=== PATIENT | male | born 1965 | race Caucasian/White ===

== ENCOUNTER → 2017-02-25 | Outpatient (CLI) | payer OTHER ==
[~2017-02-25] MED LIST: FLUT0.0529 INH; LISI-461 PO; NAPR1TAB9 PO; TAMS0.4C38 PO; TRAM-10 PO; URC10 PO
[2017-02-25 11:34] LABS: URINE APPEARANCE TURBID (CLEAR); URINE BILIRUBIN NEG (NEG); URINE COLOR YELLOW; URINE EPITHELIAL CELL AUTO 0-5 /lpf (0-5); URINE NITRITE NEG (NEG); URINE PH 5.5 (4.5-7.5); URINE SPECIFIC GRAVITY 1.028 (1.000-1.030); UROBILINOGEN NEG (NEG)
[2017-02-25 11:43] LABS: MANUAL MICROSCOPIC REQUIRED? NO; REVIEW REQ? NO
[2017-02-25 12:02] LABS: ALT/SGPT 27 U/L (12-78); AST/SGOT 9 U/L (15-37); BLOOD UREA NITROGEN 17 mg/dl (7-18); BUN/CREATININE RATIO 15.5 (10-20); CALCIUM 8.5 mg/dl (8.5-10.1); CARBON DIOXIDE 26 mmol/L (21-32); CHLORIDE 109 mmol/L (98-107); GLUCOSE 86 mg/dl (70-99); POTASSIUM 3.8 mmol/L (3.5-5.1); SODIUM 142 mmol/L (136-145)
[2017-02-25 12:07] LABS: ALB/GLOB RATIO 1.3 (0.9-2); ALKALINE PHOSPHATASE 73 U/L (45-117); CHOLESTEROL 143 mg/dl (0-200); CHOLESTEROL/HDL RATIO 3.9; HDL CHOLESTEROL 37 mg/dl; LDL CHOLESTEROL CALCULATED 87 mg/dl; PROSTATE SPECIFIC ANTIGEN 0.475 ng/ml (0.000-4.000); TRIGLYCERIDES 93 mg/dl (0-150); VERY LOW DENSITY LIPOPROT CALC 19 mg/dl
== END | disposition home or self-care (01) ==
LOC: C.LABBC 07:59
PROVIDERS: ATTEND Internal Medicine
DX: Z00.00 Encounter for general adult medical examination without abnormal findings (principal); Z13.220 Encounter for screening for lipoid disorders; I10 Essential (primary) hypertension

== ENCOUNTER 2023-10-28 14:22 | Inpatient (IN) ==
--- NOTE | 2023-10-28 14:43 | Emergency Department Note ---
Impression & Plan Renal colic, Hydronephrosis, Acute flank pain ED Provider Note NAME: VINCENT MCKEON AGE: 58 SEX: M : 1965 ARRIVES VIA: Walk-In INFORMANT: Patient ED PROVIDER(S): Román Rehman DO CHIEF COMPLAINT: Left flank pain HPI: Patient is a 58-year-old male who presents to the ER for left flank pain which started around 12:00 today. Patient admits to nausea but no vomiting. Denies any headache or change in vision. No chest pain or shortness of breath. No dysuria, urgency or frequency. Pain is radiating to his left abdomen and in his left testicle. He admits that he has had previous kidney stones before and this feels very similar. No fevers. ADDITIONAL HISTORY OBTAINED: Additional history obtained from who notes that he has had stents placed previously. Chronic Medical/Social Conditions Affecting Care: Per HPI PAST MEDICAL HISTORY:See Below PAST SURGICAL HISTORY:See Below FAMILY HISTORY:See Below SOCIAL HISTORY:See Below HOME MEDICATIONS:See Below ALLERGIES:See Below VITALS:See Below PHYSICAL EXAMINATION: GENERAL: Sitting up in bed, alert, moderate distress holding left flank rocking back and forth on the floor of the room EYE EXAM: normal conjunctiva. PERRL and EOM's grossly intact. OROPHARYNX: mucous membranes are moist NECK: supple, no nuchal rigidity, no adenopathy, non-tender LUNGS: Clear to auscultation. Normal chest wall mechanics HEART: no murmurs, S1 normal and S2 normal ABDOMEN: abdomen soft, non-tender, normo-active bowel sounds, no masses, no rebound or guarding. BACK: Back is symmetrical on inspection and there is no deformity, or left flank pain on UPPER EXTREMITIES: upper extremities are grossly normal. LOWER EXTREMITIES: No pitting edema. NEURO EXAM: Normal sensorium, cranial nerves II-XII grossly intact, normal speech, no gross weakness of arms, no gross weakness of legs. MEDICAL DECISION MAKING: Patient is a 58-year-old male who presents the ER with a past medical history of renal colic with above-stated complaint. IV was established blood work was obtained. Labs show no significant leukocytosis or anemia. BMP along LFTs bilirubin and lipase is unremarkable. UA was negative. CT abdomen pelvis shows a proximal 4 mm stone. He was given IV fluids, Zofran, Toradol and morphine x 2. He was still having persistent pain. He was slightly hypoxic and placed on nasal cannula secondary to the narcotics. He was initially discharged prior to the result of the third dose of medication/morphine. When his pain reoccurred I discussed the case with the hospitalist for further evaluation management treatment due to the recurrence of his pain and multiple doses of narcotics and hypoxia now from multiple dose of narcotic. [facility] the [facility]ults/Care Managements Discussions: Per [facility] Triage Nursing notes reviewed. Limited review of prior medical records performed Vital Signs: reviewed and remarkable for htn Differential diagnosis: Differential diagnoses includes but is not limited to gastritis, peptic ulcer disease, GERD, gallbladder disease, pancreatitis, small bowel obstruction, appendicitis, diverticulitis, hernia, urinary tract infection, torsion, perforation, trauma, infectious. ER treatment provided: See below Diagnostics interpreted by me include EKG and cardiac monitoring as listed below: -Cardiac Monitoring: An order was placed for continuous cardiac monitoring. The monitor shows a rate of 70 with sinus rhythm. -ECG: none -Laboratory studies:Interpreted by me as stated above in MDM and shown below. Imaging studies: Xrays: As interpreted by me:none CTs show: CT abdomen pelvis per my preliminary interpretation showed no obvious bowel obstruction CT abdomen pelvis per radiology as described above Procedures:none Critical Care: None Past Med/Surg History Medical History Myofascial pain Paraspinal muscle spasm Acute thoracic back pain Ear pain, right TMJ arthralgia Head ache H/O renal calculi Abdominal pain Surgical History History of prior ablation treatment History of kidney surgery History of hernia repair History of colonoscopy History of appendectomy History of tonsillectomy and adenoidectomy History of lithotripsy H/O left inguinal hernia repair Family History Father Alcohol abuse Heart disease Parkinson disease Grandmother Heart disease Grandfather (Maternal) Heart disease Myocardial infarction Diabetes Mother Hypertension Brother Diabetes Denies family history of Ovarian cancer Prostate cancer Breast cancer Colorectal cancer Social History Smoking Status: Never smoker Second Hand Exposure: No; Do You Dip or Chew Tobacco: No; Hx Alcohol Use: Yes Alcohol type: beer and wine Alcohol Intake Frequency Comment: once a week Hx Substance Use: No Preferred Language: Romanian Communication Ability: Effective Visual Impairment: Limited Hearing Ability: Normal Solderer Dipper Required: No marital status: Current Living Situation: Spouse current occupational status: employed current occupation: [employer] How many Children do You have: 1 Feels Safe at Home: Yes Childhood Exposure to Second-Hand Smoke: Yes (father smoked pipe once a month in home) Diet: regular Diet Comment: regular caffeine: Yes (coffee ) during the past year weight has: remained stable Dental Care, Regularly: Yes Physical Activity Frequency: 3-4 Times per Week Seatbelt Use: always Sunscreen Use: Yes Allergies Allergies Allergy/AdvReac Type Severity Reaction Status Date / Time pollen extracts Allergy Intermediate ITCHY Verified 10/28/23 18:34 EYES, SNEEZING, CONGESTION capsaicin AdvReac Severe severe Verified 10/28/23 18:32 stomach pain diclofenac AdvReac Severe severe Verified 10/28/23 18:32 stomach pain Home Meds Home Medications Medication Instructions Recorded Confirmed fluticasone propionate 50 1 sprays intranasal DAILY PRN 02/17/20 10/28/23 mcg/actuation nasal CONGESTION/SPRING ALLERGIES spray,suspension Previous Rx's Medication Instructions Recorded cyclobenzaprine 5 mg tablet 5 mg PO TID PRN muscle spasm #45 08/14/23 tabs ondansetron 4 mg disintegrating 4 mg PO Q6H PRN nausea and 09/10/23 tablet vomiting #15 tabs Results & Data (ED) Vital Signs Vital Signs - 24 hr 10/28/23 14:25 10/28/23 14:44 10/28/23 15:08 Temperature 36.5 C Temperature Source Temporal Artery Scan Pulse Rate 71 56 L Pulse Rate [Apical] 63 Respiratory Rate 20 18 Respiratory Effort / Characteristics Non-Labored Spontaneous Non-Labored Spontaneous Respiratory Depth Normal Normal Respiratory Pattern Regular Blood Pressure 182/134 H Blood Pressure [Left Arm] 165/90 H Blood Pressure Mean 150 Blood Pressure Mean [Left Arm] 115 Blood Pressure Position [Left Arm] Sitting Pulse Oximetry 97 Oxygen Delivery Method Room Air Sepsis Recent Fever Within 48 Hours No Sepsis New/Unexplained Change in Mental Status No Sepsis Action Taken by Nursing No Action Required Laboratory Data 10/28/23 14:48 10/28/23 14:48 Lab Results 10/28/23 10/28/23 Range/Units 14:48 16:11 WBC 8.29 (4.8-10.8) K/ul RBC 5.24 (4.70-6.10) M/uL Hgb 15.6 (14.0-18.0) g/dl Hct 45.7 (42.0-52.0) % MCV 87.2 (80.0-100.0) fL MCH 29.8 (25.0-34.0) pg MCHC 34.1 (32.0-36.0) g/dL RDW Std Deviation 41.8 (36.4-46.3) fL RDW Coeff of Kisha 13.1 (11.5-14.5) % Plt Count 281 (130-400) K/uL MPV 10.4 (9.4-12.4) fL Immature Gran % (Auto) 0.5 % Neut % (Auto) 69.9 % Lymph % (Auto) 19.7 % Traill % (Auto) 7.0 % Eos % (Auto) 2.1 % Baso % (Auto) 0.8 % Neut # (Auto) 5.80 (1.40-6.50) K/uL Lymph # (Auto) 1.63 (1.20-3.40) K/uL Traill # (Auto) 0.58 (0.11-0.59) K/uL Eos # (Auto) 0.17 (0.00-0.50) K/uL Baso # (Auto) 0.07 (0.00-0.20) K/uL Immature Gran # (Auto) 0.04 (0.01-0.20) K/uL Sodium 137 (136-145) mmol/L Potassium 4.1 (3.5-5.1) mmol/L Chloride 106 (98-107) mmol/L Carbon Dioxide 22 (21-32) mmol/L Anion Gap 9 (3-11) BUN 22 (6-23) mg/dl Creatinine 1.33 (0.6-1.4) mg/dl Est Cr Clr Drug Dosing Not Reportable Est GFR ( Amer) 67.3 ml/min Est GFR (Non-Af Amer) 58.1 ml/min BUN/Creatinine Ratio 16.5 (10-20) Glucose 141 H (70-99(Fasting)) mg/dl Calcium 9.6 (8.6-10.3) mg/dl Total Bilirubin 0.6 (0.2-1.0) mg/dl AST 17 (13-39) U/L ALT 36 (7-52) U/L Alkaline Phosphatase 68 (34-104) U/L Total Protein 7.0 (6.0-8.3) gm/dl Albumin 4.5 (3.4-5.0) gm/dl Globulin 2.5 (2.5-4.0) gm/dl Albumin/Globulin Ratio 1.8 (0.9-2) Lipase 35 (11-82) U/L Urine Color Yellow Urine Appearance Clear (Clear) Urine pH 6.5 (4.5-7.5) Ur Specific [place] 1.025 (1.000-1.030) Urine Protein Negative (Negative) Urine Glucose (UA) Negative (Negative) Urine Ketones Trace H (Negative) Urine Blood Negative (Negative) Urine Nitrite Negative (Negative) Urine Bilirubin Negative (Negative) Urine Urobilinogen Negative (Negative) Ur Leukocyte Esterase Negative (Negative) Administered Medications Discontinued Medications Sodium Chloride (Nss) 1,000 mls @ 999 mls/hr IV .Q1H1M ONE Stop: 10/28/23 17:00 Last Infusion: 10/28/23 18:07 Dose: Infused Documented By: Admin: 10/28/23 16:11 Dose: 999 mls/hr Documented By: STEFFI Ketorolac Tromethamine (Ketorolac Tromethamine 15 Mg/Ml Vial) 10 mg IV NOW ONE Stop: 10/28/23 14:40 Last Admin: 10/28/23 14:51 Dose: 10 mg Documented By: JAMIE Morphine Sulfate (Morphine Sulfate 10 Mg/Ml Carp/Vial) 6 mg IV NOW STA Stop: 10/28/23 14:40 Last Admin: 10/28/23 14:51 Dose: 6 mg Documented By: JAMIE Morphine Sulfate (Morphine Sulfate 4 Mg/Ml 1 Ml Carp\Vial) 4 mg IV NOW STA Stop: 10/28/23 17:33 Last Admin: 10/28/23 17:34 Dose: 4 mg Documented By: STEFFI Ondansetron HCl (Ondansetron Inj 2 Mg/Ml 2 Ml Vial) 4 mg IV NOW STA Stop: 10/28/23 14:40 Last Admin: 10/28/23 14:52 Dose: 4 mg Documented By: JAMIE Imaging Data Radiologist's Impression: Abdomen/Pelvis CT 10/28/23 14:[address] WITHOUT CONTRAST CT DOSE: 1279.21 mGy.cm HISTORY: Generalized abdominal pain. TECHNIQUE: Multiaxial CT images of the abdomen and pelvis were performed without contrast. A dose lowering technique was utilized adhering to the principles of ALARA. COMPARISON STUDY: Abdomen and pelvis CT 04/18/2015. FINDINGS: There is a punctate calcified granuloma within the left lower lobe. Mild dependent changes seen at the lung bases. No pneumoperitoneum. No pneumatosis. No acute fractures identified. Tiny fat-containing umbilical hernia. Prior left inguinal hernia repair. A few punctate calcified granuloma seen within the liver and spleen. The gallbladder, pancreas, and adrenal glands are unremarkable. Mild left perinephric edema. Bilateral peripelvic cysts are noted. There are few punctate bilateral renal calculi most pronounced on the right. There is a 4 mm obstructing stone within the left ureteropelvic junction resulting in moderate left hydronephrosis. No right-sided hydronephrosis. Normal caliber abdominal aorta. No retroperitoneal or pelvic lymphadenopathy. No pelvic free fluid. Normal bladder. Suboptimal evaluation for bowel pathology due to the lack of intravenous and oral contrast. However, there is no definite bowel wall thickening or obstruction. Colonic diverticulosis. No evidence for acute diverticulitis. Prior appendectomy. IMPRESSION: 1. A 4 mm obstructing stone within the left ureteropelvic junction resulting in moderate left hydronephrosis. 2. Bilateral nephrolithiasis. 3. No bowel wall thickening or obstruction. 4. Colonic diverticulosis. No evidence for acute diverticulitis. ACT 112: Negative or not required by law. Electronically signed by: Sharad Lemus M.D. 10/28/2023 4:12 PM Discharge Plan Visit Data Chief Complaint: Flank Pain Stated Complaint: KIDNEY STONE ED Provider: Román Rehman Discharge Problem: Renal colic, Hydronephrosis, Acute flank pain Discharge Instructions Krames/Other Patient Handouts: ED Kidney Stone with Pain Activity Restrictions/Additional Instructions: Please follow up with your primary care doctor or if you are a student, [facility] with in the next 24 hours. You were found to have a kidney stone. This is a stone that was made in your kidneys and is currently in your ureter. Once it gets into your bladder you will no longer have any pain and will eventually urinate this out. Any worsening of your symptoms, please return to the ED immediately. This includes any fevers greater than 100.4, worsening pain, chest pain, shortness breath, persistent nausea, vomiting, unable to eat or drink, or any other concerning signs or symptoms from your standpoint. You were given medications during this visit that will inhibit your ability to drive, operate machinery and work. Please do NOT drive, operate machinery or work for the next 12hrs. You were also given a prescription for a narcotic. While taking this medication you should also not drive, operate machinery and or work. You were found to have a blood pressure greater than 120 systolic over 90 diastolic. Due to the new Medicare guidelines, we are now recommending that you follow up with your primary care doctor in regards to this elevated blood pressure. Please follow up with urology and call them first thing when you leave here between the hours of 8am and 5pm to schedule an appointment. Please inform them that you were seen and evaluated in the ER and need follow-up for your kidney stone. Forms Stand Alone Forms: My [facility] Prescriptions Prescriptions: No Action cyclobenzaprine 5 mg tablet 5 mg PO TID PRN (Reason: muscle spasm) Qty: 45 0RF fluticasone propionate 50 mcg/actuation spray,suspension 1 sprays INTNAS DAILY PRN (Reason: CONGESTION/SPRING ALLERGIES) ondansetron 4 mg tablet,disintegrating 4 mg PO Q6H PRN (Reason: nausea and vomiting) Qty: 15 0RF Referrals Referrals: Stevie Braun CRNP [Primary Care Provider] - Marino Deluca MD [Physician] - Discharge Problem: Hydronephrosis Qualifiers: Hydronephrosis type: unspecified Qualified Code(s): N13.30 - Unspecified hydronephrosis
[2023-10-28] MEDS: MoRPHine SULFATE 10 MG/ML CARP/VIAL IV STA (14:51)
[2023-10-28] MEDS: KETOROLAC TROMETHAMINE 15 MG/ML VIAL IV ONE (14:51)
[2023-10-28] MEDS: ONDANSETRON INJ 2 MG/ML 2 ML VIAL IV STA (14:52)
[2023-10-28 15:08] LABS: Basophils # (auto) 0.07 K/uL (0.00-0.20); Basophils % (auto) 0.8 %; Eosinophils # (auto) 0.17 K/uL (0.00-0.50); Eosinophils % (auto) 2.1 %; Hematocrit (blood only) 45.7 % (42.0-52.0); Hemoglobin 15.6 g/dl (14.0-18.0); Immature Granulocytes # (auto) 0.04 K/uL (0.01-0.20); Immature Granulocytes % (auto) 0.5 %; Lymphocytes # (auto) 1.63 K/uL (1.20-3.40); Lymphocytes % (auto) 19.7 %; Mean Corpuscular Hemoglobin 29.8 pg (25.0-34.0); Mean Corpuscular Hgb Conc 34.1 g/dL (32.0-36.0); Mean Corpuscular Volume 87.2 fL (80.0-100.0); Mean Platelet Volume 10.4 fL (9.4-12.4); Monocytes # (auto) 0.58 K/uL (0.11-0.59); Neutrophils % (auto) 69.9 %; Platelet Count 281 K/uL (130-400); RDW Coefficient of Variation 13.1 % (11.5-14.5); RDW Standard Deviation 41.8 fL (36.4-46.3); Red Blood Count 5.24 M/uL (4.70-6.10); White Blood Count 8.29 K/ul (4.8-10.8)
[2023-10-28 15:32] LABS: Albumin Level 4.5 gm/dl (3.4-5.0); Anion Gap 9 (3-11); Bilirubin,Total 0.6 mg/dl (0.2-1.0); Calcium 9.6 mg/dl (8.6-10.3); Carbon Dioxide 22 mmol/L (21-32); Chloride 106 mmol/L (98-107); Potassium 4.1 mmol/L (3.5-5.1); Sodium 137 mmol/L (136-145)
[2023-10-28 15:38] LABS: Alanine Aminotransferase 36 U/L (7-52); Albumin Globulin Ratio 1.8 (0.9-2); Alkaline Phosphatase 68 U/L (34-104); Aspartate Aminotransferase 17 U/L (13-39); BUN Creatinine Ratio 16.5 (10-20); Blood Urea Nitrogen 22 mg/dl (6-23); Est GFR (African American) 67.3 ml/min; Est GFR (Non-African American) 58.1 ml/min; Globulin 2.5 gm/dl (2.5-4.0); Glucose 141 mg/dl (70-99(Fasting)); Lipase 35 U/L (11-82)
[2023-10-28] MEDS: SODIUM CHLORIDE 0.9% 1,000 ML IV ONE ×2 (16:11→19:24)
--- NOTE | 2023-10-28 16:14 | CT Scan Report ---
ABDOMEN AND PELVIS CT WITHOUT CONTRAST CT DOSE: 1279.21 mGy.cm HISTORY: Generalized abdominal pain. TECHNIQUE: Multiaxial CT images of the abdomen and pelvis were performed without contrast. A dose lo wering technique was utilized adhering to the principles of ALARA. COMPARISON STUDY: Abdomen and pelvis CT 04/18/2015. FINDINGS: There is a punctate calcified granuloma within the left lower lobe. Mild dependent changes seen at the lung bases. No pneumoperitoneum. No pneumatosis. No acute fractures identified. Tiny fat- containing umbilical hernia. Prior left inguinal hernia repair. A few punctate calcified granuloma se en within the liver and spleen. The gallbladder, pancreas, and adrenal glands are unremarkable. Mild left perinephric edema. Bilateral peripelvic cysts are noted. There are few punctate bilateral renal calculi most pronounced on the right. There is a 4 mm obstructing stone within the left ureteropelvic junction resulting in moderate left hydronephrosis. No right-sided hydronephrosis. Normal caliber ab dominal aorta. No retroperitoneal or pelvic lymphadenopathy. No pelvic free fluid. Normal bladder. Paulson boptimal evaluation for bowel pathology due to the lack of intravenous and oral contrast. However, th ere is no definite bowel wall thickening or obstruction. Colonic diverticulosis. No evidence for acut e diverticulitis. Prior appendectomy. IMPRESSION: 1. A 4 mm obstructing stone within the left ureteropelvic junction resulting in moderate left hydrone phrosis. 2. Bilateral nephrolithiasis. 3. No bowel wall thickening or obstruction. 4. Colonic diverticulosis. No evidence for acute diverticulitis. ACT 112: Negative or not required by law. Electronically signed by: Sharad Lemus M.D. 10/28/2023 4:12 PM
[2023-10-28 16:34] LABS: Appearance Urine Clear (Clear); Bilirubin Urine Negative (Negative); Blood Urine Negative (Negative); Color Urine Yellow; Glucose Urine UA Negative (Negative); Ketones Urine Trace (Negative); Leukocyte Esterase Urine Negative (Negative); Nitrite Urine Negative (Negative); Protein Urine Negative (Negative); Specific Gravity Urine 1.025 (1.000-1.030); Urobilinogen Urine Negative (Negative); pH Urine 6.5 (4.5-7.5)
[2023-10-28] MEDS: MoRPHine SULFATE 4 MG/ML 1 ML CARP\\VIAL IV STA (17:34)
--- NOTE | 2023-10-28 18:50 | History & Physical Report ---
Date of Service October 28, 2023 Assessment & Plan (1) Ureterolithiasis: Plan: IV fluids Acetaminophen 1st line, morphine 2nd line for pain NPO after midnight Consult urology (2) Hydronephrosis: (3) Renal colic: Plan VTE prophylaxis - low risk Diet - clear liquids, n.p.o. after midnight Disposition - admit to med/surg Admission and Anticipated Discharge Date Admission Date: October 28, 2023 History of Present Illness Chief Complaint: Left flank pain Primary Care Provider: FENRANDO Newby Maurciio Trevino is a 58-year-old male who presents to the ER with left flank pain. Started acutely at midday today. Radiates to groin. No exacerbating factors. No dysuria, change in frequency or smell. No fever or chills. Allergies Allergy/AdvReac Type Severity Reaction Status Date / Time pollen extracts Allergy Intermediate ITCHY Verified 10/28/23 18:34 EYES, SNEEZING, CONGESTION capsaicin AdvReac Severe severe Verified 10/28/23 18:32 stomach pain diclofenac AdvReac Severe severe Verified 10/28/23 18:32 stomach pain Home Medications Medication Instructions Recorded Confirmed Type fluticasone propionate 50 1 sprays intranasal DAILY PRN 02/17/20 10/28/23 History mcg/actuation nasal CONGESTION/SPRING ALLERGIES spray,suspension cyclobenzaprine 5 mg tablet 5 mg PO TID PRN muscle spasm #45 08/14/23 10/28/23 Rx tabs ondansetron 4 mg disintegrating 4 mg PO Q6H PRN nausea and 09/10/23 10/28/23 Rx tablet vomiting #15 tabs Past Med/Surg History Medical History Myofascial pain Paraspinal muscle spasm Acute thoracic back pain Ear pain, right TMJ arthralgia Head ache H/O renal calculi Abdominal pain Surgical History History of prior ablation treatment 2016 [facility] History of kidney surgery History of hernia repair History of colonoscopy 2016 History of appendectomy History of tonsillectomy and adenoidectomy History of lithotripsy H/O left inguinal hernia repair Family History Father Alcohol abuse Heart disease Parkinson disease Grandmother Heart disease Grandfather (Maternal) Heart disease Myocardial infarction Diabetes Mother Hypertension Brother Diabetes Denies family history of Ovarian cancer Prostate cancer Breast cancer Colorectal cancer Social History Smoking Status: Never smoker Second Hand Exposure: No; Do You Dip or Chew Tobacco: No; Hx Alcohol Use: Yes Alcohol type: beer and wine Alcohol Intake Frequency Comment: once a week Hx Substance Use: No Preferred Language: Greek Communication Ability: Effective Visual Impairment: Limited Hearing Ability: Normal Fruit Sprayer Required: No Beliefs That Will Affect Care: None marital status: Current Living Situation: Spouse Current Living Situation Comment: lives in 2 story house with current occupational status: employed current occupation: [employer] ([email or web address]) How many Children do You have: 1 Other Information That Helps Us Care for You: No Feels Safe at Home: Yes Safety Concerns: Feels Safe At This Time Childhood Exposure to Second-Hand Smoke: Yes (father smoked pipe once a month in home) Diet: regular Diet Comment: regular caffeine: Yes (coffee ) during the past year weight has: remained stable Dental Care, Regularly: Yes Physical Activity Frequency: 3-4 Times per Week Seatbelt Use: always Sunscreen Use: Yes Assistive Devices: Glasses and Hearing Aid - Bilateral Review of Systems Review of Systems: All systems reviewed & are unremarkable except as noted in HPI & below Physical Exam Constitutional: WD/WN, vitals as above ENMT: external ear and nose normal, oropharynx normal Respiratory: normal respiratory effort, lungs clear to auscultation Cardiovascular: RRR, no murmur, no edema Gastrointestinal (Abdomen): normal bowel sounds, soft, nontender, no hepatosplenomegaly Skin: no rashes, warm and dry Neurologic: moves all extremities and awake; not confused Psychiatric: A+Ox3, euthymic affect Genitourinary: no CVA tenderness Results & Data Results & Data Vital Signs (Past 12 Hours) Vital Signs Temp Pulse Pulse Resp BP BP Pulse Ox 10/28/23 15:08 56 L 10/28/23 14:44 63 18 165/90 H 10/28/23 14:25 36.5 C 71 20 182/134 H 97 O2 Del Method 10/28/23 15:08 10/28/23 14:44 10/28/23 14:25 Room Air Laboratory Results Abnormal lab results 10/28/23 10/28/23 Range/Units 14:48 16:11 Glucose 141 H (70-99(Fasting)) mg/dl Urine Ketones Trace H (Negative) Diagnostic Findings ABDOMEN AND PELVIS CT WITHOUT CONTRAST CT DOSE: 1279.21 mGy.cm HISTORY: Generalized abdominal pain. TECHNIQUE: Multiaxial CT images of the abdomen and pelvis were performed without contrast. A dose lowering technique was utilized adhering to the principles of ALARA. COMPARISON STUDY: Abdomen and pelvis CT 04/18/2015. FINDINGS: There is a punctate calcified granuloma within the left lower lobe. Mild dependent changes seen at the lung bases. No pneumoperitoneum. No pneumatosis. No acute fractures identified. Tiny fat-containing umbilical h ernia. Prior left inguinal hernia repair. A few punctate calcified granuloma seen within the liver and spleen. The gallbladder, pancreas, and adrenal glands are unremarkable. Mild left perinephric edema. Bilateral peripelvic cysts are noted. There are few punctate bilateral renal calculi most pronounced on the right. There is a 4 mm obstructing stone within the left ureteropelvic junction resulting in moderate left hydronephrosis. No right-sided hydronephrosis. Normal caliber abdominal aorta. No retroperitoneal or pelvic lymphadenopathy. No pelvic free fluid. Normal bladder. Suboptimal evaluation for bowel pathology due to the lack of intravenous and oral contrast. However, there is no definite bowel wall thickening or obstruction. Colonic diverticulosis. No evidence for acute diverticulitis. Prior appendectomy. IMPRESSION: 1. A 4 mm obstructing stone within the left ureteropelvic junction resulting in moderate left hydronephrosis. 2. Bilateral nephrolithiasis. 3. No bowel wall thickening or obstruction. 4. Colonic diverticulosis. No evidence for acute diverticulitis. Medications Administered ER medications given: Morphine 6 mg IV Ondansetron 4 mg IV Toradol 10 mg IV Normal saline 1 L bolus Morphine 4 mg IV Code Status & VTE Plan Code Status Full VTE Prophylaxis Plan VTE Prophylaxis will be ordered: No PG Care Time/CCT Total # of Minutes Spent Total Time Spent with Patient: Total time spent is greater than 50% in coordination of care (as documented) at patient's floor/unit and/or counseling patient: Coding Level of Care Code 55132 INT INP/OBS CARE 2/55MIN Diagnoses Ureterolithiasis N20.1 Hydronephrosis N13.30 Hydronephrosis type: unspecified Renal colic N23 (2) Hydronephrosis Hydronephrosis type: unspecified Qualified Code(s): N13.30 - Unspecified hydronephrosis
--- NOTE | 2023-10-28 19:37 | Urology Consultation ---
Date of Consultation October 28, 2023 Assessment & Plan (1) Ureterolithiasis: The patient has been admitted on the hospitalist service. From a urologic perspective we recommend the following: Provide analgesics Provide antiemetics Provide IV fluid for hydration Would recommend initiating Flomax for expulsive therapy At the present time patient is nontoxic-appearing. He is normotensive without tachycardia or fever. He does not have leukocytosis or acute kidney injury. I therefore think a trial of conservative management with the measures outlined above are reasonable. I feel the patient could have clear liquids at the present time would make him n.p.o. after midnight. He will be reevaluated the morning of 10/29/2023 and the determination will be made if patient requires cystoscopic intervention Additional recommendations were forthcoming based on his clinical course unfolds History of Present Illness Reason for Consultation: Nephrolithiasis History of Present Illness This is a 58-year-old male who presented to the emergency department secondary to left flank pain that began approximately noon today. He notes that the pain does not have any modifying factors but does radiate to the front of his abdomen and into his groin. He has had nausea without vomiting. He denies any fevers, shakes, or chills. He did admit to some slight dysuria but denies any urinary frequency or hematuria. Patient does have a history of kidney stones in the past. He says that he has had cystoscopy with lithotripsy in the past but this was done in [place] and has been approximately 20 years ago. He does note that he has had several kidney stones since that time most recently 2 to 3 years ago, but he was able to successfully pass the stones. Since arrival to the hospital the patient has had labs and imaging which independent reviewed. CT scan of the abdomen pelvis showed the patient had a 4 mm obstructing kidney stone at the left ureteropelvic junction. Moderate left hydronephrosis was noted. Labs include a CBC her white blood cell count, hemoglobin, hematocrit, and platelet count were all normal. Chemistry profile showed sodium and potassium along with the BUN and creatinine were normal. The urinalysis was not indicative of infection. At the time of my interview the patient was resting comfortably in bed he was no distress. Allergies Allergy/AdvReac Type Severity Reaction Status Date / Time pollen extracts Allergy Intermediate ITCHY Verified 10/28/23 18:34 EYES, SNEEZING, CONGESTION capsaicin AdvReac Severe severe Verified 10/28/23 18:32 stomach pain diclofenac AdvReac Severe severe Verified 10/28/23 18:32 stomach pain Home Medications Medication Instructions Recorded Confirmed Type fluticasone propionate 50 1 sprays intranasal DAILY PRN 02/17/20 10/28/23 History mcg/actuation nasal CONGESTION/SPRING ALLERGIES spray,suspension cyclobenzaprine 5 mg tablet 5 mg PO TID PRN muscle spasm #45 08/14/23 10/28/23 Rx tabs ondansetron 4 mg disintegrating 4 mg PO Q6H PRN nausea and 09/10/23 10/28/23 Rx tablet vomiting #15 tabs Patient History Medical History Myofascial pain Paraspinal muscle spasm Acute thoracic back pain Ear pain, right TMJ arthralgia Head ache H/O renal calculi Abdominal pain Surgical History History of prior ablation treatment 2016 [facility] History of kidney surgery History of hernia repair History of colonoscopy 2016 History of appendectomy History of tonsillectomy and adenoidectomy History of lithotripsy H/O left inguinal hernia repair Family History Father Alcohol abuse Heart disease Parkinson disease Grandmother Heart disease Grandfather (Maternal) Heart disease Myocardial infarction Diabetes Mother Hypertension Brother Diabetes Denies family history of Ovarian cancer Prostate cancer Breast cancer Colorectal cancer Social History Smoking Status: Never smoker Second Hand Exposure: No; Do You Dip or Chew Tobacco: No; Hx Alcohol Use: Yes Alcohol type: beer and wine Alcohol Intake Frequency Comment: once a week Hx Substance Use: No Preferred Language: Libyan Communication Ability: Effective Visual Impairment: Limited Hearing Ability: Normal Energy Scheduler Required: No marital status: Current Living Situation: Spouse current occupational status: employed current occupation: [employer] How many Children do You have: 1 Feels Safe at Home: Yes Childhood Exposure to Second-Hand Smoke: Yes (father smoked pipe once a month in home) Diet: regular Diet Comment: regular caffeine: Yes (coffee ) during the past year weight has: remained stable Dental Care, Regularly: Yes Physical Activity Frequency: 3-4 Times per Week Seatbelt Use: always Sunscreen Use: Yes Review of Systems Constitutional: no fever and no chills Eyes: + corrective lenses Ear, Nose, Mouth, Throat: no hearing loss Respiratory: no cough and no dyspnea Cardiovascular: no chest pain Gastrointestinal: + abdominal pain (Radiating from left fl ank) and + nausea; no vomiting Genitourinary: + as per Subjective / HPI Musculoskeletal: + back pain (Left flank) Integumentary: no rash Neurologic: no localized weakness Physical Exam Constitutional: WD/WN, vitals as above Eyes: no conjunctival abnormality ENMT: Ears: no hearing impairment and no external ear abnormality Neck: trachea midline Respiratory: normal respiratory effort; no respiratory distress and no labored breathing Cardiovascular: Rate/Rhythm: regular rate and regular rhythm Gastrointestinal (Abdomen): Abdomen is soft and nondistended. There is no rebound tenderness or guarding or pain with palpation. Musculoskeletal: No calf tenderness Skin: no rashes Neurologic: moves all extremities Psychiatric: A+Ox3, euthymic affect Genitourinary: At the time of my exam the patient had no CVA tenderness bilaterally with percussion Results & Data Vital Signs (Past 12 Hours) Vital Signs Temp Pulse Pulse Resp BP BP Pulse Ox 10/28/23 15:08 56 L 10/28/23 14:44 63 18 165/90 H 10/28/23 14:25 36.5 C 71 20 182/134 H 97 O2 Del Method 10/28/23 15:08 10/28/23 14:44 10/28/23 14:25 Room Air PG Care Time/CCT Total # of Minutes Spent Total Time Spent with Patient: Total time spent is greater than 50% in coordination of care (as documented) at patient's floor/unit and/or counseling patient: Coding Level of Care Code 43696 IN/OBS CONSULT LVL 5,80M Diagnoses Ureterolithiasis N20.1
[2023-10-28] MEDS ORDERED: MoRPHine SULFATE 2 MG/ML CARP IV PRN (22:17)
[2023-10-28] MEDS ORDERED: ACETAMINOPHEN 325 MG TAB PO PRN (22:17)
[2023-10-28] MEDS ORDERED: MoRPHine SULFATE 4 MG/ML 1 ML CARP\\VIAL IV PRN (22:17)
[2023-10-28] MEDS ORDERED: ONDANSETRON INJ 2 MG/ML 2 ML VIAL IV PRN (22:17)
[2023-10-28] MEDS: LACTATED RINGER'S 1,000 ML IV SCH (22:38)
[2023-10-28] MEDS: TAMSULOSIN HCL 0.4 MG CAP PO ONE (23:36)
[2023-10-29] MEDS: TAMSULOSIN HCL 0.4 MG CAP PO SCH (07:39)
--- NOTE | 2023-10-29 09:16 | Urology Progress Note ---
Date of Service October 29, 2023 Assessment & Plan (1) Ureterolithiasis: (2) Hydronephrosis: (3) Renal colic: Plan: 58 yo/M admitted for renal colic secondary to an obstructing left 4 mm UPJ stone Afebrile with stable vitals Labs 10/27 showed normal renal function, no leukocytosis UA showed trace ketones, otherwise unremarkable Patient has had minimal pain We discussed options for stone management including trial of passage vs surgical intervention Discussed option for left ureteral stent placement today or outpatient surgical intervention if pain is controlled After discussion, he elects trial of passage Okay to discharge from standpoint when medically stable Recommend discharge with Tamsulosin, prn analgesia, and urine strainer Will arrange outpatient f/u with our service will sign off Admission and Anticipated Discharge Date Admission Date: October 28, 2023 Subjective Patient seen at bedside No issues overnight Generally feeling well Minimal pain, did not require any pain medication overnight Voiding without difficulty No nausea/vomiting No fever/chills Has passed stone spontaneously in the past, also notes distant hx of lithotripsy Review of Systems Constitutional: as per Subjective / HPI Gastrointestinal: as per Subjective / HPI Genitourinary: + as per Subjective / HPI Physical Exam Constitutional: well developed and well nourished; no acute distress Respiratory: normal respiratory effort; no respiratory distress and no labored breathing Gastrointestinal (Abdomen): Inspection/Auscultation: abdomen normal to inspection Musculoskeletal: Head/Neck/Chest: normocephalic Neurologic: moves all extremities and awake Psychiatric: Orientation: alert and oriented x 3 Results & Data Vital Signs (Past 12 Hours) Vital Signs Temp Pulse Resp BP Pulse Ox O2 Del Method 10/29/23 07:48 36.9 C 75 16 119/64 93 Room Air 10/28/23 22:15 36.8 C 79 18 156/93 H 96 Room Air PG Care Time/CCT Total # of Minutes Spent Total Time Spent with Patient: Total time spent is greater than 50% in coordination of care (as documented) at patient's floor/unit and/or counseling patient: Coding Level of Care Code 14002 SUB INP/OBS CARE 07/31MIN Diagnoses Ureterolithiasis N20.1 Hydronephrosis N13.30 Hydronephrosis type: unspecified Renal colic N23 (2) Hydronephrosis Hydronephrosis type: unspecified Qualified Code(s): N13.30 - Unspecified hydronephrosis
[2023-10-29 10:05] LABS: Hematocrit (blood only) 39.6 % (42.0-52.0); Hemoglobin 13.2 g/dl (14.0-18.0); Mean Corpuscular Hemoglobin 29.9 pg (25.0-34.0); Mean Corpuscular Hgb Conc 33.3 g/dL (32.0-36.0); Mean Corpuscular Volume 89.6 fL (80.0-100.0); Mean Platelet Volume 10.3 fL (9.4-12.4); Platelet Count 180 K/uL (130-400); RDW Coefficient of Variation 13.2 % (11.5-14.5); RDW Standard Deviation 43.6 fL (36.4-46.3); Red Blood Count 4.42 M/uL (4.70-6.10); White Blood Count 7.44 K/ul (4.8-10.8)
[2023-10-29 10:09] LABS: BUN Creatinine Ratio 10.9 (10-20); Calcium 8.9 mg/dl (8.6-10.3); Creatinine Clr Calc Pharmacy 52.7 ml/min; Est GFR (African American) 48.7 ml/min
--- NOTE | 2023-10-29 15:55 | Discharge Summary ---
Date of Service October 29, 2023 Admission HPI Per Admitting Provider Mauricio Trevino is a 58-year-old male who presents to the ER with left flank pain. Started acutely at midday today. Radiates to groin. No exacerbating factors. No dysuria, change in frequency or smell. No fever or chills. Admission Exam Per Admitting Provider Constitutional: WD/WN, vitals as above ENMT: external ear and nose normal, oropharynx normal Respiratory: normal respiratory effort, lungs clear to auscultation Cardiovascular: RRR, no murmur, no edema Gastrointestinal (Abdomen): normal bowel sounds, soft, nontender, no hepatosplenomegaly Skin: no rashes, warm and dry Neurologic: moves all extremities and awake; not confused Psychiatric: A+Ox3, euthymic affect Genitourinary: no CVA tenderness Principal Diagnosis Ureterolithiasis with moderate left hydronephrosis Discharge Exam General: No acute distress, nondiaphoretic, well-developed, well-nourished. Skin: The skin was without rashes, erythema, edema, or bruising. Cardiac: Regular rate and rhythm without murmurs gallops or rubs. Pulm: Clear to auscultation bilaterally without wheezes, rales or rhonchi. No retractions or accessory muscle use. Abdominal: Positive bowel sounds x 4. Soft, nontender, without masses or organomegaly. No guarding or rebound tenderness. Neuro: A&O x3. No focal neurological deficits. Discharge Data Allergies Allergy/AdvReac Type Severity Reaction Status Date / Time pollen extracts Allergy Intermediate ITCHY Verified 10/28/23 18:34 EYES, SNEEZING, CONGESTION capsaicin AdvReac Severe severe Verified 10/28/23 18:32 stomach pain diclofenac AdvReac Severe severe Verified 10/28/23 18:32 stomach pain Consultations 10/28/23 18:05 ED Decision to Admit Stat 10/28/23 18:51 Consult Urology Routine Ordered Studies 10/28/23 14:39 CT stones [CT abd pelvis wo con] Stat Hospital Course (1) Ureterolithiasis: - Patient presented with left flank pain that radiated to the front of his abdomen and into his groin, nausea without vomiting, and slight dysuria. - History of several kidney stones in the past. He had cystoscopy with lithotripsy approximately 20 years ago. Most recent kidney stones were 2 to 3 years ago, where he was able to successfully pass the stones on his own. - CT of abdomen pelvis on admission showed 4 mm obstructing kidney stone at the left ureteropelvic junction, with moderate left hydronephrosis. - UA was negative. - Urology discussed options for stone management including trial of passage versus surgical intervention, patient opted for trial of passage. - Upon discharge, tamsulosin x 4 weeks or 1 stop by urology, Conway as needed for pain control, Zofran as needed for nausea, urine strainer to monitor passage of the stone. - Patient is to follow-up with urology outpatient. (2) Hydronephrosis: (3) Renal colic: Plan CODE STATUS: Full code Total Time Total Time Spent Total Time Spent (In Minutes): Greater than 30 minutes spent completing this discharge process including direct patient care, medication reconciliation, documentation, review of labs and images, and coordination of care. Discharge Plan Discharge Items Patient Disposition: Home - Self-Care Reason For Visit: URETEROLITHIASIS Discharge Diagnosis: Ureteral lithiasis with moderate left hydronephrosis Activity: Resume your previous activity Non-emergency contact: Primary Care Provider and Urologist Call non-emergency contact if: you have any medication questions and your symptoms worsen Follow-up/Referrals: Stevie Braun CRNP [Primary Care Provider] - 11/04/23 10:20 am Diet: Regular and Other - See Diet Comment Diet Comment: Advance your diet as tolerated. Addtl Attending Provider Instructions: Mr. Trevino, Jakub were admitted to the hospital because of an obstructing kidney stone at the left ureteropelvic junction with moderate left hydronephrosis. This is what caused your symptoms of left flank pain, groin pain, dysuria, and nausea. Your urinalysis was not indicative of infection. You were treated with conservative management. You met with urology, who discussed with you the options for stone management including a trial of passage versus surgical intervention for the kidney stone. With electing for the trial of stone passage, you are stable for discharge from the hospital at this time, with a follow-up with urology outpatient. I have sent your prescriptions to the [facility] on [facility]. Upon discharge from the hospital: * Take tamsulosin 0.4 mg daily in the morning x4 weeks or when stopped by urology. * Take pain medication (Conway) as needed. -- Conway is a combination pain medication of hydrocodone and acetaminophen. -- Be cautious with taking [id number] acetaminophen (Tylenol) when taking this to ensure you are not taking more than the daily limit of acetaminophen. * Take Zofran as needed for nausea. * Drink plenty of fluids. * Strain your urine to monitor for passage of the stone. * Follow-up with urology outpatient. Their office will call you with an appointment date and time. Please return to the hospital if you experience any of the following: Fever >100.4 F or chills, uncontrolled pain, blood in your urine, lightheadedness, dizziness, passing out, shortness of breath, or chest pain. It was a pleasure taking care of you while you were in the hospital, Ida Goel PA-C Pending Studies at Discharge: No Stand-Alone Forms: My [facility], Smoking Cessation Medications and DC Order Prescriptions: New tamsulosin 0.4 mg Capsule 0.4 mg PO QAM Qty: 30 0RF hydrocodone-acetaminophen 5-325 mg tablet 1 tab PO Q6H PRN (Reason: pain) Qty: 14 0RF Continued cyclobenzaprine 5 mg tablet 5 mg PO TID PRN (Reason: muscle spasm) Qty: 45 0RF fluticasone propionate 50 mcg/actuation spray,suspension 1 sprays INTNAS DAILY PRN (Reason: CONGESTION/SPRING ALLERGIES) ondansetron 4 mg tablet,disintegrating 4 mg PO Q6H PRN (Reason: nausea and vomiting) Qty: 15 0RF Discharge Orders: Discharge Order (Routine); Ordered 10/29/23 Ordered By: Ida David/Other Patient Handouts: Anatomy of the Male Urinary Tract, Kidney Stones Expectant Tx, Preventing Kidney Stones Admission Data Admit Date/Time: 10/28/23 18:48 Attending Provider: Elias Shine Admit Provider: Elias Soto Primary Care Provider: Stevie Braun Other Providers: Elias Soto; Marino Deluca Other Interventions: Discharge Summary Assessment (RN) Last Done: 10/29/23 12:00 Coding Level of Care Code 15948 INP/OBS DISCH >30 MIN Diagnoses Ureterolithiasis N20.1 Hydronephrosis N13.30 Hydronephrosis type: unspecified Renal colic N23
== END 2023-10-29 13:09 | disposition home or self-care (01) | DRG 694 ==
LOC: ED 14:22 → 3W 18:48 → SUATTDRO 18:48 → 3W 21:11